=== PATIENT | female | born 1990 | race Caucasian/White ===

== ENCOUNTER 2017-06-13 10:19 | Outpatient (CLI) | payer MEDICAID ==
--- NOTE | 2017-06-13 13:13 | XRAY Report ---
THREE VIEW RIGHT FOOT: 06/13/2017 CLINICAL INDICATION: Pain. FINDINGS: AP, lateral, and oblique views of the right foot demonstrate no evidence of fracture or dislocation. Ankle fracture is better seen on ankle films of the same day. No foreign body is seen in the soft tissues. IMPRESSION: ANKLE FRACTURE, BETTER SEEN ON ANKLE FILMS OF THE SAME DAY. NO EVIDENCE OF FRACTURE IN THE FOOT. TD: 06/13/2017 13:12
--- NOTE | 2017-06-13 13:15 | XRAY Report ---
THREE VIEW RIGHT ANKLE: 06/13/2017 CLINICAL INDICATION: Ankle pain. FINDINGS: AP, lateral, and oblique views of the right ankle demonstrate an oblique distal fibular shaft fracture, minimally displaced. No other fracture is appreciated. Soft tissue swelling is present. No effusion is seen. IMPRESSION: OBLIQUE DISTAL FIBULAR SHAFT FRACTURE, MINIMALLY DISPLACED. TD: 06/13/2017 13:13
== END 2017-06-13 10:20 | disposition home or self-care (01) ==
LOC: DI.N 10:19
PROVIDERS: ATTEND Physician Assistant Medical
DX: S82.431A Displaced oblique fracture of shaft of right fibula, initial encounter for closed fracture (principal)

== ENCOUNTER 2017-06-15 18:31 | Emergency (ER) | payer MEDICAID ==
--- NOTE | 2017-06-15 18:50 | ED Physician Documentation ---
PD HPI LOWER EXT INJURY - Stated complaint Stated Complaint: POSS RT FOOT FRACTURE - Chief complaint Chief Complaint: Ext Problem - History obtained from History obtained from: Patient - History of Present Illness PD HPI LOW EXT INJURY LOCATION: Right, Ankle Type of injury: Fall, Twist Timing - onset: How many weeks ago (1) Timing - duration: Weeks (1) Timing - details: Abrupt onset, Still present (injured ankle a week ago and had xray, with report to PCP and Dx of fracture. She was referred to ED to get splint/cast and crutches, with f/u ortho planned by clinic in [facility] Sunday. Patient not sure why not referred to Ortho her in [facility].) Worsened by: Moving, Palpating Associated symptoms: Swelling. No: Weakness, Numbness Similar symptoms before: Has not had sx before Recently seen: Clinic Review of Systems Skin: denies: Abrasion (s), Laceration (s) Musculoskeletal: reports: Extremity pain, Extremity swelling Neurologic: denies: Focal weakness, Numbness PD PAST MEDICAL HISTORY - Past Medical History Cardiovascular: None Respiratory: None Neuro: None Endocrine/Autoimmune: None - Present Medications Home Medications: Ambulatory Orders Medication Instructions Recorded Confirmed HYDROcod/ACETAM 5/325 [[place] 5/325] 1 tab PO Q6H PRN #15 tablet 06/15/17 - Allergies Allergies/Adverse Reactions: Allergies Allergy/AdvReac Type Severity Reaction Status Date / Time gluten Allergy Unknown Verified 06/15/17 18:44 PD ED PE NORMAL - Vitals Vital signs reviewed: Yes - General General: Alert and oriented X 3, No acute distress, Well developed/nourished - Derm Derm: Normal color, Warm and dry - Extremities Extremities: Other (right distal fibular with tenderness and ecchymosis, swelling. Medially not tender. ) - Neuro Neuro: No motor deficit, No sensory deficit Results - Vitals Vitals: Oxygen O2 Source Room air - Rads (name of study) ankle right Radiology: Prelim report reviewed (distal fibular oblique fracture, minimal widening. Tibia okay. ) PD MEDICAL DECISION MAKING - ED course Complexity details: reviewed results (does have fracture that looks similar to a week ago. Isolated fibular fracture, could use cast boot and crutches (still to be nonweightbearing) until f/u with ortho. ), considered differential, d/w patient Departure - Departure Disposition: Home, Self Care Clinical Impression: Fracture of fibula, distal, closed Qualifiers: Encounter type: subsequent encounter Fracture morphology: unspecified fracture morphology Laterality: right Fracture healing: with routine healing Qualified Code(s): S82.831D - Other fracture of upper and lower end of right fibula, subsequent encounter for closed fracture with routine healing Condition: Stable Record reviewed to determine appropriate education?: Yes Instructions: ED Fx Ankle Lateral Malleolus Follow-Up: Daniel Corley MD [Provider Admit Priv/Credential] - Prescriptions: HYDROcod/ACETAM 5/325 [[place] 5/325] 1 tab PO Q6H PRN #15 tablet PRN Reason: Pain Comments: Fibular fractures are commonly treated with a cast boot and this provides reasonable stability. However you want to not be on it right now. You also want to have the cast boot on majority of the time except for briefly for skin cleansing etc. Use crutches for nonweightbearing. Ice and elevate and rest the ankle often. Follow-up with orthopedics either in [place] as scheduled or you could call orthopedics here to fill to see if that is an alternative. Discharge Date/Time: 06/15/17 20:26
--- NOTE | 2017-06-15 19:21 | XRAY Report ---
EXAM: RIGHT ANKLE RADIOGRAPHY EXAM DATE: 06/15/2017 06:51 PM. CLINICAL HISTORY: Pain, fracture follow-up. COMPARISON: 06/13/2017. TECHNIQUE: 3 views. FINDINGS: Bones: Nondisplaced oblique fracture lateral malleolus with slightly increased width of fracture line now measuring 3.5 mm on lateral view compared to 2.0 mm in previous study. Otherwise unremarkable. Joints: Normal. No effusion. No subluxations. The ankle mortise is normally aligned. Soft Tissues: Prominent soft tissue swelling over lateral malleolus, increased slightly. IMPRESSION: Increased soft tissue swelling over nondisplaced lateral malleolar fracture. [facility] Referring Provider Line: [phone] SITE ID: [id number]
[2017-06-15] MEDS ORDERED: HYDROcod/ACETAM 5/325 MG TABLET PO STA (20:02)
[2017-06-15 20:21] VITALS: BP 121/93
== END 2017-06-15 20:26 | disposition home or self-care (01) ==
LOC: ED 18:31
DX: S82.831D Other fracture of upper and lower end of right fibula, subsequent encounter for closed fracture with routine healing (principal); W19.XXXD Unspecified fall, subsequent encounter; X50.9XXD Other and unspecified overexertion or strenuous movements or postures, subsequent encounter
CPT/HCPCS: 73610; 99283; A9270

== ENCOUNTER 2019-08-07 08:00 | Outpatient (CLI) | payer MEDICAID ==
[2019-08-10 13:19] LABS: B. PARAPERTUSSIS DNA NOT DETECTED; SOURCE NASAL
== END 2019-08-07 23:59 | disposition home or self-care (01) ==
LOC: LAB.R 08:00
PROVIDERS: ATTEND Physician Assistant Medical
DX: R05 Cough (principal)
CPT/HCPCS: 87798

== ENCOUNTER 2019-08-28 10:17 | Outpatient (CLI) | payer MEDICAID ==
--- NOTE | 2019-08-28 22:48 | XRAY Report ---
Reason: COUGH Procedure Date: 08/28/2019 Accession Number: [id number] / [id number] Procedure: WCP - Chest 2 View X-Ray CPT Code: 84623 Final Report FULL RESULT: EXAM: CHEST RADIOGRAPHY EXAM DATE: 08/28/2019 10:17 AM. CLINICAL HISTORY: Persistent cough. COMPARISON: None. TECHNIQUE: 2 views. FINDINGS: Lungs/Pleura: No focal opacities evident. No pleural effusion. No pneumothorax. Normal volumes. Mediastinum: Heart and mediastinal contours are unremarkable. Other: No bony abnormality identified. IMPRESSION: Normal 2-view chest radiography. [facility]
== END 2019-08-28 10:18 | disposition home or self-care (01) ==
LOC: DI.WCP 10:17
PROVIDERS: ATTEND Physician Assistant Medical
DX: R05 Cough (principal)
CPT/HCPCS: 71046

== ENCOUNTER 2020-01-12 09:29 | Emergency (ER) | payer MEDICAID ==
[2020-01-12] MEDS ORDERED: BUFFERED LIDOCAINE 10 ML SYRINGE SUBQ STA (10:08)
[2020-01-12] MEDS ORDERED: BUPIVACAINE 0.5% PF 10 ML VIAL SUBQ STA (10:09)
--- NOTE | 2020-01-12 10:09 | ED Physician Documentation ---
History of Present Illness - Stated complaint Stated Complaint: L FOOT PX - Chief complaint Chief Complaint: Ext Problem - History obtained from History obtained from: Patient - History of Present Illness Timing: How many days ago (14) - Additonal information Additional information: 29-year-old female has a great toe with swelling and erythema and drainage cons istent with ingrown toenail and she would like this fixed. She has had symptoms for about 2 weeks and has tried to get the nail to grow out but it is getting more red and tender and she has drainage from the area. Review of Systems Constitutional: denies: Fever Respiratory: denies: Cough GI: denies: Vomiting Musculoskeletal: reports: Extremity swelling Neurologic: denies: Generalized weakness, Focal weakness, Numbness PD PAST MEDICAL HISTORY - Past Medical History Cardiovascular: None Respiratory: None Endocrine/Autoimmune: None - Past Surgical History Past Surgical History: No - Present Medications Home Medications: Ambulatory Orders Medication Instructions Recorded Confirmed HYDROcod/ACETAM 5/325 [[place] 5/325] 1 tab PO Q6H PRN #15 tablet 06/15/17 - Allergies Allergies/Adverse Reactions: Allergies Allergy/AdvReac Type Severity Reaction Status Date / Time gluten Allergy Unknown Verified 01/12/20 09:46 - Social History Does the pt smoke?: No Smoking Status: Never smoker Does the pt drink ETOH?: No Does the pt have substance abuse?: No - Immunizations Immunizations are current?: Yes - POLST Patient has POLST: No PD ED PE NORMAL - General General: Alert and oriented X 3, No acute distress, Well developed/nourished - HEENT HEENT: Atraumatic, PERRL - Respiratory Respiratory: No respiratory distress - Derm Derm: Normal color, Warm and dry, No rash - Extremities Extremities: No deformity, No edema, Other (Over the left great toe to the lateral surface the toenail is ingrown the cuticle is erythematous and swollen and there is no specific drainage now. There is some slight bleeding from where the patient has been digging at the toenail. Distal neurovascular components are intact.) - Neuro Neuro: Alert and oriented X 3, [employer] 2-12 intact, No motor deficit, No sensory deficit, Normal speech Eye Opening: Spontaneous Motor: Obeys Commands Verbal: Oriented GCS Score: 15 - Psych Psych: Normal mood, Normal affect Results - Vitals Vitals: Vital Signs - 24 hr 01/12/20 09:40 Temperature 36.3 C L Heart Rate 66 Respiratory 15 Rate Blood Pressure 118/74 O2 Saturation 98 Oxygen O2 Source Room air Procedures - General procedure General procedure: Ingrown toenail: With use of 50-50 mixture of lidocaine and bupivacaine a digital block is performed on the left great toe after cleansing with chlorhexidine. After anesthetic is set up the foot is washed with Hibiclens and the toenail was sectioned with a nail suctioning scissor and the cut portion of the nail is grasped with the platypus forceps and removed. Patient tolerates this well. PD MEDICAL DECISION MAKING - ED course Complexity details: reviewed old records, considered differential, d/w patient, d/w family ED course: 29-year-old female with an ingrown left big toenail has nail successfully sectioned and tolerates this well. She has excellent drainage from the area and I do not believe antibiotics are required at this time. She does have a similar issue with the toe on the right foot and it does not need sectioning today. Departure - Departure Disposition: 01 Home, Self Care Clinical Impression: Ingrown toenail of left foot Condition: Stable Instructions: ED Ingrown Toenail Excised Follow-Up: Jacquie Andrews PA-C [Primary Care Provider] -
[2020-01-12 11:01] VITALS: BP 131/86
== END 2020-01-12 11:00 | disposition home or self-care (01) ==
LOC: ED 09:29
DX: L60.0 Ingrowing nail (principal)
CPT/HCPCS: 11765; 99283; 99284

== ENCOUNTER 2020-08-02 15:43 | Outpatient (CLI) | payer MEDICAID ==
--- NOTE | 2020-08-02 16:38 | XRAY Report ---
PROCEDURE: Ankle 3 View RT INDICATIONS: R ANKLE PX TECHNIQUE: 3 views of the ankle were acquired. COMPARISON: None FINDINGS: Bones: No fractures or dislocations. Ankle mortise is normally aligned. No suspicious bony lesions . Soft tissues: No tibiotalar joint effusion. Achilles tendon appears normal. Lateral ankle soft tis blanca swelling is seen. IMPRESSION: Lateral ankle soft tissue swelling. No fracture or dislocation. Ankle mortise is congrue nt. Reviewed by: Naif Napoles MD on 08/02/2020 4:37 PM PDT Approved by: Naif Napoles MD on 08/02/2020 4:37 PM PDT Station ID: [id number]
== END 2020-08-02 15:44 | disposition home or self-care (01) ==
LOC: DI.N 15:43
PROVIDERS: ATTEND Physician Assistant Medical
DX: M25.571 Pain in right ankle and joints of right foot (principal); R22.41 Localized swelling, mass and lump, right lower limb